=== PATIENT | male | born 1980 | race Caucasian/White ===

== ENCOUNTER 2018-01-27 12:54 | Emergency (ER) | payer MEDICAID ==
[~2018-01-27] VITALS: Ht 172.7 cm; Wt 115.0 kg
[~2018-01-27 12:54] MED LIST: IBUP-22
[2018-01-27] MEDS ORDERED: IBUPROFEN 600MG TABLET PO ONE (14:15)
[2018-01-27 14:38] VITALS: BP 148/62
== END 2018-01-27 15:34 | disposition home or self-care (01) ==
LOC: ER 12:54
DX: M25.512 Pain in left shoulder (principal); R07.81 Pleurodynia; M25.812 Other specified joint disorders, left shoulder; R03.0 Elevated blood-pressure reading, without diagnosis of hypertension; Y04.2XXA Assault by strike against or bumped into by another person, initial encounter; Y93.89 Activity, other specified; Y92.89 Other specified places as the place of occurrence of the external cause
CPT/HCPCS: 71101; 73030; 99283